=== PATIENT | male | born 2000 | race African-American/Black ===

== ENCOUNTER → 2019-03-02 | Outpatient (CLI) | payer OTHER ==
--- NOTE | 2019-03-03 07:52 | REP ---
MRI lumbar spine without contrast: History: Lower back pain. Technique: Sagittal and axial T1 and T2-weighted scans are acquired in the usual fashion with and without fat saturation. Sequences include spin echo, turbo spin-echo, and STIR imaging sequences. MRI findings: Lumbar vertebral body heights are preserved. Alignment is normal. There is no evidence of spondylolysis or spondylolisthesis. The tip of the conus medullaris is normal in position and appearance at T12. No extra vertebral abnormality is observed. Intervertebral discs are preserved in height and signal intensity. No disc protrusion is seen at any level. There is no evidence of central canal stenosis or neural foraminal encroachment. Impression: Normal MRI study of the lumbar spine. Electronically Signed by Missael Carballo MD 03/03/2019 07:44 A
== END ==
LOC: M RAD 16:57
PROVIDERS: ATTEND Physician Assistant
DX: M54.5 Low back pain (principal)